=== PATIENT | male | born 1995 | race Caucasian/White ===

== ENCOUNTER 2022-06-01 16:50 | Emergency (ER) | payer OTHER ==
[~2022-06-01] VITALS: Ht 177.8 cm; Wt 78.0 kg
[2022-06-01 18:47] LABS: BASOPHILS % 0.7 % (0.0-2.0); EOSINOPHILS % 1.7 % (0.0-5.0); MEAN CORPUSCULAR HEMOGLOBIN 30.9 pg (28.0-32.0); MEAN CORPUSCULAR VOLUME 90.5 fL (80.0-94.0); MEAN PLATELET VOLUME 7.7 fl (7.4-10.4); MONOCYTES % 7.7 % (2.0-8.0); NEUTROPHILS % 44.9 % (40.0-76.0); PLATELET 211 x1000/uL (130-400); RED BLOOD CELL COUNT 4.53 mill/uL (4.7-6.1); RED CELL DISTRIBUTION WIDTH 13.5 % (11.6-14.6)
[2022-06-01 18:55] LABS: CHLORIDE 105 mEq/L (98-107); PROTHROMBIN TIME 11.2 sec (9.6-11.0)
[2022-06-01 19:30] VITALS: BP 124/80
== END 2022-06-01 19:35 | disposition home or self-care (01) ==
LOC: ER 16:50
DX: K62.5 Hemorrhage of anus and rectum (principal); Z90.49 Acquired absence of other specified parts of digestive tract
CPT/HCPCS: 36415; 74176; 80053; 85025; 99284